=== PATIENT | female | born 1960 | race Caucasian/White ===

== ENCOUNTER 2017-01-30 17:44 | Emergency (ER) | payer MEDICARE, OTHER ==
[~2017-01-30] VITALS: Wt 71.2 kg
[2017-01-30] MEDS ORDERED: PROAIR HFA0.09 MG/AC IH (18:07)
[2017-01-30] MEDS ORDERED: SINGULAIR 110 MG/TAB PO (18:07)
[2017-01-30] MEDS ORDERED: SYMBICORT1 AE3 IH (18:07)
[2017-01-30] MEDS ORDERED: SPIRIVA RE2.5 MCG/Ac IH (18:07)
[2017-01-30] MEDS ORDERED: TYLENOL 500MG500 MG PO (18:08)
[2017-01-30] MEDS ORDERED: CIPRO500 M1 PO (21:02)
[2017-01-30] MEDS ORDERED: PERCOCET 325 MG1 TA2 PO (21:07)
[2017-01-30 22:18] VITALS: BP 124/64
== END 2017-01-30 22:18 | disposition home or self-care (01) ==
LOC: ED 17:44
DX: N12 Tubulo-interstitial nephritis, not specified as acute or chronic (principal); R31.9 Hematuria, unspecified; J44.9 Chronic obstructive pulmonary disease, unspecified; Z89.021 Acquired absence of right finger(s); F17.290 Nicotine dependence, other tobacco product, uncomplicated
CPT/HCPCS: J0744; J1200; J1885; J2405; J7030